=== PATIENT | female | born 2000 | race Caucasian/White ===

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

== ENCOUNTER → 2020-10-03 | Outpatient (CLI) | payer OTHER | LOC: M.ULTRA 08:00 | PROVIDERS: ATTEND Nurse Practitioner Family | DX: S70.11XA Contusion of right thigh, initial encounter (principal); X58.XXXA Exposure to other specified factors, initial encounter; Y93.89 Activity, other specified; Y92.89 Other specified places as the place of occurrence of the external cause; Y99.8 Other external cause status ==

== ENCOUNTER → 2021-02-19 | Outpatient (CLI) | payer OTHER | LOC: M.ULTRA 08:00 | PROVIDERS: ATTEND Nurse Practitioner Family | DX: E04.1 Nontoxic single thyroid nodule (principal); R94.6 Abnormal results of thyroid function studies ==